=== PATIENT | female | born 1995 | race Two or more races ===

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

== ENCOUNTER → 2020-12-11 09:00 | Outpatient (CLI) | payer MEDICAID | END | disposition home or self-care (01) | LOC: D.LDO 09:00 | PROVIDERS: ATTEND Obstetrics & Gynecology | DX: O36.8190 Decreased fetal movements, unspecified trimester, not applicable or unspecified (principal) ==

== ENCOUNTER 2020-12-21 13:06 | Outpatient (CLI) | payer OTHER ==
[2020-12-22] MEDS ORDERED: PRENAVITE1 TAB PO (17:24)
[2020-12-22 17:25] VITALS: BMI 36.1
== END 2020-12-21 13:49 | disposition home or self-care (01) ==
LOC: D.LDO 13:06
PROVIDERS: ATTEND Student in an Organized Health Care Education/Training Program
DX: O35.9XX0 Maternal care for (suspected) fetal abnormality and damage, unspecified, not applicable or unspecified (principal)

== ENCOUNTER 2020-12-22 15:44 | Inpatient (IN) | payer OTHER ==
[~2020-12-22] VITALS: Ht 165.1 cm; Wt 98.4 kg
[2020-12-22] MEDS ORDERED: PRENAVITE1 TAB PO (17:24)
[2020-12-22 17:25] VITALS: BP 155/87; Ht 165.1 cm; Wt 98.4 kg
[2020-12-22 18:23] LABS: HEMATOCRIT 38.7 % (36.0-48.0); HEMOGLOBIN 12.7 g/dL (12-16); MCH 28.5 pg (26.0-34.0); MCHC 32.8 g/dL (31.0-37.0); MEAN PLATELET VOLUME 12.6 fL (7.4-10.4); RBC 4.45 10x6/uL (4.00-5.40); RDW 14.4 % (11.5-14.5); WBC 12.4 10x3/uL (4.8-10.8)
[2020-12-22 18:25] LABS: BILIRUBIN NEGATIVE (NEGATIVE); KETONE NEGATIVE (NEGATIVE); NITRITE NEGATIVE (NEGATIVE); UROBILINOGEN NORMAL mg/dL (< 2)
[2020-12-22 18:33] LABS: UDS - AMPHET NEGATIVE QUAL (NEGATIVE); UDS - BARB NEGATIVE QUAL (NEGATIVE); UDS - BENZO NEGATIVE QUAL (NEGATIVE); UDS - COCAINE NEGATIVE QUAL (NEGATIVE); UDS - OPIATE NEGATIVE QUAL (NEGATIVE); UDS - PCP NEGATIVE QUAL (NEGATIVE); UDS - THC NEGATIVE QUAL (NEGATIVE)
[2020-12-23 05:01] LABS: HEMATOCRIT 30.3 % (36.0-48.0); HEMOGLOBIN 9.8 g/dL (12-16)
--- NOTE | 2020-12-23 05:53 | NUR ---
PT TRANSFERRED TO ROOM 1257. PT ORIENTED TO ROOM AND BATHROOM. PT DENIES PAIN OR NEEDS AT THIS TIME.
--- NOTE | 2020-12-23 05:58 | NUR ---
TUCKS AND DERMAPLAST PROVIDED. INSRUCTIONS OF USE PROVIDED. PT DENIES FURTHER NEEDS. WILL CONTINUE TO MONITOR.
--- NOTE | 2020-12-23 06:02 | NUR ---
REPORT OF PT LABS CALLED TO DR HICKMAN. T/O RCVD TO REPEAT LABS AT 1000.
--- NOTE | 2020-12-23 08:45 | NUR ---
PT IN HIGH FOWLERS POSITION HOLDING INFANT. DENIES NEEDS OR PAIN AT THIS TIME.
[2020-12-23 10:20] VITALS: BP 119/66
[2020-12-23 10:21] LABS: HEMATOCRIT 27.2 % (36.0-48.0); LYMPHOCYTE ABS# 1.15 10x3/uL (1.18-3.74); MCH 28.9 pg (26.0-34.0); MCHC 33.1 g/dL (31.0-37.0); MCV 87.5 fL (80.0-100.0); MEAN PLATELET VOLUME 11.6 fL (7.4-10.4); NEUTROPHIL ABS# 18.07 10x3/uL (1.56-6.13); PLATELET COUNT 130 10x3/uL (130-400); RBC 3.11 10x6/uL (4.00-5.40); RDW 14.6 % (11.5-14.5); WBC 20.3 10x3/uL (4.8-10.8)
--- NOTE | 2020-12-23 10:24 | NUR ---
PT IN HIGH FOWLERS POSITION HOLDING . PHYSICAL ASSESSMENT DONE. SEE SHIFT ASSESSMENT. SALINE LOCK IN RIGHT HAND. SITE C/D/I. FF, U/U LIGHT RUBRA LOCHIA NOTED ON COMFORT PADS. PT DENIES PASSING CLOTS. PT RATING PAIN 1/10 IN HER PERINEUM. DENIES NEED FOR INTERVENTION.COMFORT PADS, PANTIES, AND ICE PACK PROVIDED. ICE PLACED ON PERINEUM PER PT. BEVERAGES PROVIDED PER REQUEST. BOTH DENY FURTHER NEEDS AT THIS TIME.
[2020-12-23 10:42] LABS: ANISOCYTOSIS OCC; EOSINOPHILS 9 % (0-7); LYMPHOCYTES 9 % (15-50); MONOCYTES 3 % (2-11); NEUTROPHILS 76 % (40-80); PLATELET ESTIMATE NORMAL
--- NOTE | 2020-12-23 10:45 | NUR ---
REPORT OF MOST RECENT LABS CALLED TO DR Morelia MARTINEZ RECIEVED TO REPEAT CBC IN AM AND MAY DC SALINE LOCK AT THIS TIME.
--- NOTE | 2020-12-23 11:00 | NUR ---
SALINE LOCK DCD WITH CATH TIP INTACT.PT DENIES FURTHER NEEDS
--- NOTE | 2020-12-23 11:45 | NUR ---
PT ASSISTED UP TO SHOWER. PERSONAL HYGIENE PRODUCTS PROVIDED. PT DENIES NEED FOR ASSISTANCE
--- NOTE | 2020-12-23 13:00 | NUR ---
PT RESTING WITH EYES CLOSED. AROUSES TO VERBAL STIMULATION. PT DENIES NEEDS AT THIS TIME.
--- NOTE | 2020-12-23 15:19 | NUR ---
PT AMBULATING AROUND ROOM. PT RATES PAIN 2/10 IN ABDOMEN AND PERINEUM. MOTRIN 600MG GIVEN PO. PT DENIES FURTHER NEEDS AT THIS TIME.
[2020-12-23 16:30] VITALS: BP 103/58
--- NOTE | 2020-12-23 16:30 | NUR ---
PT IN HIGH FOWLERS POSITION INFANT. VS OBTAINED AND STABLE. FF, U/1, LIGHT RUBRA LOCHIA NOTED. NO CLOTS EXPRESSED. DISCUSSED ON DEMAND WITH PT AND FOB. BOTH VERBALIZE UNDERSTANDING.
--- NOTE | 2020-12-23 18:15 | NUR ---
PT IN HIGH FOWLERS POSITION . FRESH ICE WATER PROVIDED. PT DENIES FURTHER NEEDS AT THIS TIME.
--- NOTE | 2020-12-23 21:30 | NUR ---
ROUNDS MADE. PT REQUESTS AND RECEIVES A BOTTLE AND PACIFIER FOR INFANT. EDUCATION PROVIDED. M.O.M. GIVEN PER ORDERS SEE EMAR FOR ADMINISTRATION.
--- NOTE | 2020-12-24 00:15 | NUR ---
ROUNDS MADE. PT CURRENTLY . DENIES ANY NEEDS AT THIS TIME. WILL CONTINUE TO MONITOR.
--- NOTE | 2020-12-24 01:32 | NUR ---
PT REQUESTS AND RECEIVES MOTRIN 600MG X1 TAB FOR PAIN RATED 2/10. PT DENIES FURTHER NEEDS AT THIS TIME. WILL CONTINUE TO MONITOR PRN.
[2020-12-24 02:30] VITALS: BP 119/62
--- NOTE | 2020-12-24 04:37 | NUR ---
ROUNDS MADE. PT RESTING SUPINE IN HOSPITAL BED WITH RESPIRATIONS EVEN AND UNLABORED. INFANT ASLEEP IN OPEN CRIB AT BEDSIDE. PT LEFT UNDISTURBED AT THIS TIME.
--- NOTE | 2020-12-24 06:24 | NUR ---
ROUNDS MADE. PT RESTING IN RT LATERAL WITH RESPIRATIONS EVEN AND UNLABORED, EYES CLOSED. PT LEFT UNDISTURBED.
--- NOTE | 2020-12-24 07:35 | NUR ---
RN TO BEDSIDE. PT LYING AWAKE IN BED USING CELL PHONE. BREAKFAST TRAY AT BEDSIDE. BABY IN OPEN CRIB AT BEDSIDE. PT DENIES NEEDS OR PAIN AT PRESENT. INFORMED THAT RN WILL RETURN OF SHIFT ASSESSMENT AFTER PT HAS HAD A CHANCE TO EAT HER BREAKFAST. PT AGREEABLE.
[2020-12-24 08:15] VITALS: BP 116/68
--- NOTE | 2020-12-24 08:15 | NUR ---
RN TO BEDSIDE FOR SHIFT ASSESSMENT. PT OOB RETURNING FROM BR. TO BED FOR ASSESSMENT. RATES PAIN 0/10. SEE FLOWSHEET FOR ASSESSMENT. FRESH ICE WATER SERVED. PT ATE APPROX 90% OF BREAKFAST. PT DENIES FURTHER NEEDS. REPORTS FEELING THE URGE TO HAVE A BM. TO BATHROOM AT THIS TIME. BABY IN OPEN CRIB W/FOB AT BEDSIDE.
[2020-12-24 09:14] LABS: BASOPHILS 0.2 % (0-2); EOSINOPHILS 0.2 % (0-7); HEMATOCRIT 27.4 % (36.0-48.0); HEMOGLOBIN 8.7 g/dL (12-16); IMMATURE GRANULOCYTES 1.5 % (0-5); LYMPHOCYTE ABS# 1.66 10x3/uL (1.18-3.74); LYMPHOCYTES 11.1 % (15-50); MCHC 31.8 g/dL (31.0-37.0); MCV 88.1 fL (80.0-100.0); MEAN PLATELET VOLUME 11.5 fL (7.4-10.4); MONOCYTES 5.1 % (2-11); NEUTROPHILS 81.9 % (40-80); PLATELET COUNT 121 10x3/uL (130-400); RBC 3.11 10x6/uL (4.00-5.40); RDW 15.1 % (11.5-14.5); WBC 14.9 10x3/uL (4.8-10.8)
--- NOTE | 2020-12-24 09:42 | NUR ---
ROUNDS MADE. PT SITTING UP ON SIDE OF BED PACKING BABY CLOTHES. PT DENIES PAIN OR NEEDS AT THIS TIME.
--- NOTE | 2020-12-24 09:56 | NUR ---
REPORT OF AM LABS CALLED TO DR HICKMAN. TO SEE PT FOR AM ROUNDS.
--- NOTE | 2020-12-24 10:26 | NUR ---
DR HICKMAN TO PT'S ROOM FOR ROUNDING AT THIS TIME.
--- NOTE | 2020-12-24 11:35 | NUR ---
ROUNDS MADE. PT UP AMBULATING IN ROOM. DENIES PAIN OR NEEDS AT THIS TIME.
--- NOTE | 2020-12-24 13:30 | NUR ---
ROUNDS MADE. PT UP AMBULATING IN ROOM. PAIN AND NEEDS ASSESSED. PT DENIES BOTH.
--- NOTE | 2020-12-24 15:45 | NUR ---
RN TO BEDSIDE FOR ROUNDING AND DISCHARGE TEACHING. PT CURRENTLY UP AMBULATING IN ROOM. REPORTS VAGINAL PRESSURE PAIN 10/24. MOTRIN OFFERED. PT ACCEPTS. SEE EMAR. DISCHARGE TEACHING GIVEN TO INCLUDE : POSTBIRTH WARNING SIGNS,PP VAGINAL DELIVERY,PP DREPRESSION,PAIN MANAGEMENT AND DEPT PP INSTRUCTIONS. PT GIVEN PP FOLLOW APPT DATE AND TIME. NO RX TO BE GIVEN. PT VERBALZIES UNDERSTANDING AND AGREEABLE. DENIES QUESTIONS. PT TO BE DISCHARGED WITH BABY. FRESH ICE WATER SERVED. NO FURTHER NEEDS AT THIS TIME. FOB AT BEDSIDE.
--- NOTE | 2020-12-24 16:30 | NUR ---
PT DISCHARGED TO HOME IN STABLE CONDITION W/BABY. TRANSPORTED VIA W/C OFF UNIT PER VOLUNTEER TO AWAITING CAR TO BE DRIVEN HOME.
[2020-12-25 06:11] LABS: RAPID PLASMA REAGIN Non Reactive (Non Reactive)
== END 2020-12-24 16:30 | disposition home or self-care (01) | DRG 806 ==
LOC: D.LDO 15:44 → D.LD 17:06
PROVIDERS: Obstetrics & Gynecology; ADMIT Student in an Organized Health Care Education/Training Program; ATTEND Student in an Organized Health Care Education/Training Program
PROC: 10E0XZZ Delivery of Products of Conception, External Approach (ICD-10-PCS; principal; 2020-12-23)
PROC: 0KQM0ZZ Repair Perineum Muscle, Open Approach (ICD-10-PCS; 2020-12-23)
DX: O32.6XX0 Maternal care for compound presentation, not applicable or unspecified (principal); O71.4 Obstetric high vaginal laceration alone; Z37.0 Single live birth; Z3A.39 39 weeks gestation of pregnancy; O34.13 Maternal care for benign tumor of corpus uteri, third trimester; D25.9 Leiomyoma of uterus, unspecified

== ENCOUNTER 2020-12-26 15:05 | Emergency (ER) | payer OTHER ==
[~2020-12-26] VITALS: Ht 165.1 cm; Wt 93.3 kg
[~2020-12-26 15:05] MED LIST: PRENAVITE1 TAB PO
[2020-12-26 15:15] VITALS: Ht 165.1 cm; Wt 93.3 kg
[2020-12-26 16:14] LABS: BASOPHILS 0.5 % (0-2); EOSINOPHILS 1.7 % (0-7); HEMATOCRIT 29.2 % (36.0-48.0); HEMOGLOBIN 9.1 g/dL (12-16); LYMPHOCYTE ABS# 1.69 10x3/uL (1.18-3.74); LYMPHOCYTES 15.7 % (15-50); MCH 28.3 pg (26.0-34.0); MCHC 31.2 g/dL (31.0-37.0); MCV 90.7 fL (80.0-100.0); MEAN PLATELET VOLUME 11.2 fL (7.4-10.4); MONOCYTES 5.8 % (2-11); NEUTROPHILS 71.3 % (40-80); RBC 3.22 10x6/uL (4.00-5.40); RDW 15.1 % (11.5-14.5); WBC 10.8 10x3/uL (4.8-10.8)
[2020-12-26 16:26] LABS: PLATELET COUNT 178 10x3/uL (130-400)
[2020-12-26 16:34] LABS: CALC OSMOLALITY 280 mosm/kg (275-300); CALCIUM 8.5 mg/dL (8.5-10.1); CARBON DIOXIDE 25.7 mmol/L (21.0-32.0); CHLORIDE - SERUM 107 mmol/L (98-107); CREATININE - SERUM 0.6 mg/dL (0.6-1.3); GLUCOSE 89 mg/dL (74-106); POTASSIUM - SERUM 3.9 mmol/L (3.5-5.1); SODIUM 142 mmol/L (136-145); UREA NITROGEN 9 mg/dL (7-18); eGFR NON AFRICAN AMERICAN > 90 mL/min (90-120)
[2020-12-26 16:40] LABS: ALBUMIN 2.4 g/dL (3.4-5.0); ALKALINE PHOSPHATASE 119 U/L (30-120); ALT (SGPT) 40 U/L (10-68); BILIRUBIN - TOTAL 0.18 mg/dL (0.2-1.3); PROTEIN - SERUM 6.3 g/dL (6.4-8.2)
[2020-12-26 16:41] LABS: BILIRUBIN NEGATIVE (NEGATIVE); KETONE NEGATIVE (NEGATIVE); NITRITE NEGATIVE (NEGATIVE); UROBILINOGEN NORMAL mg/dL (< 2)
[2020-12-26 16:42] LABS: WHITE CELLS - URINE 25-50 HPF (0-4)
[2020-12-26 16:43] LABS: BACTERIA MODERATE HPF (NONE SEEN); SQUAMOUS EPITHELIAL 0-5 HPF (0-4)
[2020-12-26] MEDS ORDERED: CEPHALEXIN500 M1 PO (17:31)
[2020-12-26 18:09] VITALS: BP 132/81
== END 2020-12-26 18:10 | disposition home or self-care (01) ==
LOC: D.ER 15:05
PROVIDERS: Family Medicine
DX: O90.81 Anemia of the puerperium (principal); O72.1 Other immediate postpartum hemorrhage; N39.0 Urinary tract infection, site not specified; J45.909 Unspecified asthma, uncomplicated; K21.9 Gastro-esophageal reflux disease without esophagitis